=== PATIENT | male | born 1980 | race Caucasian/White ===

== ENCOUNTER 2020-09-07 21:17 | Emergency (ER) | payer OTHER ==
[~2020-09-07] VITALS: Ht 172.7 cm; Wt 68.0 kg
[~2020-09-07 21:17] MED LIST: LORTAB 7.5/5001 TA1 PO
[2020-09-07] MEDS ORDERED: SUPER THERAVIT1 EACH PO (21:26)
[2020-09-07] MEDS ORDERED: MELOXICAM15 MG PO (23:01)
[2020-09-07 23:14] VITALS: BP 110/75
== END 2020-09-07 23:16 | disposition home or self-care (01) ==
LOC: M.ERS 21:17
DX: S52.691A Other fracture of lower end of right ulna, initial encounter for closed fracture (principal); S90.122A Contusion of left lesser toe(s) without damage to nail, initial encounter; W22.8XXA Striking against or struck by other objects, initial encounter; Y93.89 Activity, other specified; Y92.89 Other specified places as the place of occurrence of the external cause; Y99.8 Other external cause status

== ENCOUNTER → 2020-09-10 | Outpatient (CLI) | payer OTHER ==
[~2020-09-10] MED LIST changes: +MELOXICAM15 MG PO; +SUPER THERAVIT1 EACH PO
== END ==
LOC: M.LAB 14:08
PROVIDERS: ATTEND Orthopaedic Surgery
DX: Z01.812 Encounter for preprocedural laboratory examination (principal); Z20.828 Contact with and (suspected) exposure to other viral communicable diseases

== ENCOUNTER → 2020-09-26 | Outpatient (CLI) | payer OTHER | LOC: M.RAD 09:40 | PROVIDERS: ATTEND Orthopaedic Surgery | DX: S52.231A Displaced oblique fracture of shaft of right ulna, initial encounter for closed fracture (principal); X58.XXXA Exposure to other specified factors, initial encounter; Y93.89 Activity, other specified; Y92.89 Other specified places as the place of occurrence of the external cause; Y99.8 Other external cause status ==

== ENCOUNTER → 2020-10-11 | Outpatient (CLI) | payer OTHER | LOC: M.RAD 14:57 | PROVIDERS: ATTEND Orthopaedic Surgery | DX: S52.231A Displaced oblique fracture of shaft of right ulna, initial encounter for closed fracture (principal); S50.11XA Contusion of right forearm, initial encounter ==